=== PATIENT | male | born 1985 | race African-American/Black ===

== ENCOUNTER 2020-10-26 19:35 | Emergency (ER) | payer OTHER ==
[~2020-10-26] VITALS: Ht 172.7 cm; Wt 117.9 kg
[2020-10-26] MEDS ORDERED: TETRACAINE HCL 0.5% OPTH(EYE) SOLN 4ML EACHEYE ONE (22:30)
[2020-10-26] MEDS ORDERED: FLUORESCEIN SOD OPTH TEST STRIP EACHEYE ONE (22:30)
[2020-10-26 23:21] VITALS: BP 126/79
== END 2020-10-26 23:47 | disposition home or self-care (01) ==
LOC: ER 19:39
DX: S05.02XA Injury of conjunctiva and corneal abrasion without foreign body, left eye, initial encounter (principal); X58.XXXA Exposure to other specified factors, initial encounter; Y93.89 Activity, other specified; Y92.89 Other specified places as the place of occurrence of the external cause; Y99.8 Other external cause status